=== PATIENT | female | born 1940 | race Caucasian/White ===

== ENCOUNTER 2017-04-22 05:16 | Observation (INO) ==
[2017-04-22] MEDS ORDERED: ASPIRIN 325 MG TABLET PO STA (06:31)
[2017-04-22 07:00] LABS: Basophils # 0.1 10*3/uL (0.0-0.2); Eosinophils # 0.2 10*3/uL (0.0-0.87); Eosinophils % 3.1 % (0.00-10.9); Hematocrit 40.3 VOL% (35.7-47.0); Hemoglobin 13.9 GM/DL (12.0-16.0); Immature Granulocytes % 0.2 %; Immature Granulocytes Absolute 0.01 #; Lymphocytes # 2.1 10*3/uL (1.4-4.0); Lymphocytes % 33.7 % (21.3-54.2); Mean Corpuscular HGB Conc 34.5 GM/DL (32-36); Mean Corpuscular Hemoglobin 32 PG (27-34); Mean Corpuscular Volume 93.9 FL (87-102); Mean Platelet Volume 9.2 FL (9.6-12.0); Monocytes # 0.7 10*3/uL (0.11-0.8); Monocytes % 10.8 % (1.7-12.7); Neutrophils # 3.1 10*3/uL (1.4-7.4); Neutrophils % 51.2 % (38.7-73.9); Platelet Count 258 T/CUMM (130-400); Red Blood Count 4.29 MC/CUMM (3.8-5.5); Red Cell Distribution Width 12.1 % (9.3-17.3); White Blood Count 6.1 T/CUMM (4-12)
[2017-04-22] MEDS ORDERED: ASPIRIN 325 MG TABLET ONE (07:02)
[2017-04-22 07:27] LABS: Calcium 9.8 MG/DL (8.5-10.1); Osmolality,Calculated 278.4 MOS/KG (273-304); Potassium 3.5 MMOL/L (3.5-5.1)
[2017-04-22] MEDS ORDERED: ENOXAPARIN 80 MG/0.8 ML SYRINGE SUBCUT STA (07:27)
[2017-04-22] MEDS: NITROGLYCERIN SL 0.4 MG TABLET SL PRN ×2 (07:30→07:36)
[2017-04-22] MEDS ORDERED: ENOXAPARIN 80 MG/0.8 ML SYRINGE SUBCUT ONE (07:32)
[2017-04-22] MEDS ORDERED: MAGNESIUM SULF RIDER 2 GM in PREMIX 1 EACH IV PRN (07:49)
[2017-04-22] MEDS ORDERED: ONDANSETRON 4 MG/2 ML VIAL IV PRN (07:49)
[2017-04-22] MEDS ORDERED: MAGNESIUM SULF RIDER 4 GM in PREMIX 1 EACH IV PRN (07:49)
[2017-04-22] MEDS: SODIUM CHLORIDE 0.45% 1,000 ML IV SCH ×2 (12:51→16:54)
[2017-04-22] MEDS ORDERED: ENOXAPARIN 60 MG/0.6 ML SYRINGE SUBCUT SCH (15:30)
[2017-04-22] MEDS ORDERED: hydrALAZINE 20 MG/1 ML VIAL IV PRN (16:52)
[2017-04-23 06:05] LABS: Basophils # 0.1 10*3/uL (0.0-0.2); Basophils % 0.9 % (0.0-0.8); Eosinophils # 0.2 10*3/uL (0.0-0.87); Eosinophils % 2.6 % (0.00-10.9); Hematocrit 38.2 VOL% (35.7-47.0); Immature Granulocytes % 0.2 %; Immature Granulocytes Absolute 0.01 #; Lymphocytes # 2.6 10*3/uL (1.4-4.0); Mean Corpuscular Hemoglobin 32 PG (27-34); Mean Corpuscular Volume 93.6 FL (87-102); Mean Platelet Volume 9.5 FL (9.6-12.0); Monocytes # 0.7 10*3/uL (0.11-0.8); Monocytes % 11.3 % (1.7-12.7); Neutrophils # 2.9 10*3/uL (1.4-7.4); Platelet Count 271 T/CUMM (130-400); Red Blood Count 4.08 MC/CUMM (3.8-5.5); Red Cell Distribution Width 11.9 % (9.3-17.3); White Blood Count 6.5 T/CUMM (4-12)
[2017-04-23 07:11] LABS: Calcium 9.4 MG/DL (8.5-10.1); Free T4 (Free Thyroxine) 0.98 NG/DL (0.76-1.46); Magnesium 2.1 MG/DL (1.8-2.4); Osmolality,Calculated 276.5 MOS/KG (273-304); Potassium 3.9 MMOL/L (3.5-5.1); Thyroid Stimulating Hormone 2.13 uIU/ml (0.358-3.74)
[2017-04-23 07:14] LABS: Risk Ratio 6.77; VLDL CHOLESTEROL 92.4 MG/DL
[2017-04-23] MEDS ORDERED: BISOPROLOL/HCTZ 5-6.25 MG TABLET PO SCH ×2 (09:00→21:00)
[2017-04-23] MEDS ORDERED: ASPIRIN EC 81 MG TABLET PO SCH (12:30)
[2017-04-23 19:22] VITALS: BP 128/72
[2017-04-23] MEDS ORDERED: ATORVASTATIN 40 MG TABLET PO SCH (21:00)
[2017-04-24] MEDS ORDERED: ATORVASTATIN 10 MG TABLET PO SCH (09:00)
== END 2017-04-23 19:08 | disposition home or self-care (01) ==
LOC: N.ED 05:16 → N.EDINP 05:16 → N.TELEN 10:08
PROVIDERS: ADMIT Family Medicine; ATTEND Family Medicine

== ENCOUNTER 2017-05-21 00:58 | Inpatient (IN) ==
[2017-05-21] MEDS ORDERED: NITROGLYCERIN 2% OINT 1 INCH/GM PACK TOP STA (01:32)
[2017-05-21] MEDS ORDERED: ONDANSETRON 4 MG/2 ML VIAL IV STA (01:32)
[2017-05-21] MEDS ORDERED: MORPHINE 2 MG/1 ML SYRINGE IV STA (01:32)
[2017-05-21] MEDS ORDERED: METOPROLOL TARTRATE 25 MG TABLET PO STA (01:32)
[2017-05-21] MEDS ORDERED: ALUM/MAG/SIMETH/LIDO VISC 1:1 30 ML BOTTLE PO STA (01:32)
[2017-05-21] MEDS ORDERED: ASPIRIN 325 MG TABLET PO STA (01:32)
[2017-05-21] MEDS ORDERED: NITROGLYCERIN 2% OINT 1 INCH/GM PACK TOP ONE (01:48)
[2017-05-21] MEDS ORDERED: METOPROLOL TARTRATE 25 MG TABLET ONE (01:48)
[2017-05-21] MEDS ORDERED: ONDANSETRON 4 MG/2 ML VIAL ONE (01:48)
[2017-05-21] MEDS ORDERED: ASPIRIN 325 MG TABLET ONE (01:49)
[2017-05-21] MEDS ORDERED: MORPHINE 2 MG/1 ML SYRINGE ONE (01:51)
[2017-05-21 01:55] LABS: Basophils # 0.1 10*3/uL (0.0-0.2); Basophils % 0.7 % (0.0-0.8); Eosinophils # 0.3 10*3/uL (0.0-0.87); Eosinophils % 3.2 % (0.00-10.9); Hematocrit 38.2 VOL% (35.7-47.0); Hemoglobin 12.8 GM/DL (12.0-16.0); Immature Granulocytes % 0.5 %; Immature Granulocytes Absolute 0.04 #; Lymphocytes # 2.6 10*3/uL (1.4-4.0); Lymphocytes % 31.3 % (21.3-54.2); Mean Corpuscular HGB Conc 33.5 GM/DL (32-36); Mean Corpuscular Hemoglobin 32 PG (27-34); Mean Corpuscular Volume 94.8 FL (87-102); Mean Platelet Volume 9.6 FL (9.6-12.0); Monocytes # 0.8 10*3/uL (0.11-0.8); Monocytes % 9.2 % (1.7-12.7); Neutrophils # 4.6 10*3/uL (1.4-7.4); Neutrophils % 55.1 % (38.7-73.9); Platelet Count 269 T/CUMM (130-400); Red Blood Count 4.03 MC/CUMM (3.8-5.5); Red Cell Distribution Width 11.8 % (9.3-17.3); White Blood Count 8.4 T/CUMM (4-12)
[2017-05-21 02:02] LABS: PT Patient Result 10.7 SECS
[2017-05-21 02:24] LABS: Alanine Aminotransferase 26 U/L (13-56); Albumin 4.1 G/DL (3.4-5.0); Alkaline Phosphatase 101 U/L (45-117); Aspartate Amino Transferase 18 U/L (0-37); Bilirubin,Total < 0.39 MG/DL (0.2-1.0); Blood Urea Nitrogen 19 MG/DL (7-18); Calcium 10.1 MG/DL (8.5-10.1); Glucose 99 MG/DL (74-106); Osmolality,Calculated 282.3 MOS/KG (273-304); Potassium 3.6 MMOL/L (3.5-5.1); Sodium 141 MMOL/L (136-145); Total Protein 7.7 G/DL (6.4-8.3)
[2017-05-21] MEDS ORDERED: MORPHINE 2 MG/1 ML SYRINGE IV PRN (04:02)
[2017-05-21] MEDS ORDERED: ONDANSETRON 4 MG/2 ML VIAL IV PRN (04:02)
[2017-05-21] MEDS: DEXTROSE 5% NACL 0.9% 1,000 ML IV SCH ×3 (06:30→23:25)
[2017-05-21] MEDS ORDERED: MAGNESIUM SULF RIDER 2 GM in PREMIX 1 EACH IV PRN (08:41)
[2017-05-21] MEDS ORDERED: POTASSIUM CHLORIDE RIDER 10 MEQ in PREMIX 1 EACH IV PRN (08:41)
[2017-05-21] MEDS ORDERED: HEPARIN/NACL 0.9% 2 UNITS/ML 2,000 ML IV ONE (08:46)
[2017-05-21] MEDS ORDERED: NITROGLYCERIN DRIP 50 MG/250 ML BOTTLE IV ONE (08:46)
[2017-05-21] MEDS ORDERED: LIDOCAINE 1% 20 ML VIAL ONE (08:46)
[2017-05-21] MEDS ORDERED: VERAPAMIL 5 MG/2 ML VIAL ONE (08:46)
[2017-05-21] MEDS ORDERED: SODIUM CHLORIDE 0.45% 1,000 ML IV SCH (09:00)
[2017-05-21] MEDS ORDERED: DIAZEPAM 5 MG TABLET PO ONE (09:00)
[2017-05-21] MEDS ORDERED: diphenhydrAMINE CAP 25 MG CAPSULE PO ONE (09:00)
[2017-05-21] MEDS ORDERED: MIDAZOLAM 2 MG/2 ML VIAL ONE (09:06)
[2017-05-21] MEDS ORDERED: fentaNYL 100 MCG/2 ML VIAL ONE (09:06)
[2017-05-21] MEDS ORDERED: ENOXAPARIN 60 MG/0.6 ML SYRINGE ONE (09:20)
[2017-05-21] MEDS ORDERED: ADENOSINE 90 MG/30 ML VIAL IV ONE (09:48)
[2017-05-21] MEDS: ATORVASTATIN 10 MG TABLET PO SCH (10:01)
[2017-05-21] MEDS ORDERED: BISOPROLOL/HCTZ 5-6.25 MG TABLET PO SCH (21:00)
[2017-05-22 04:27] LABS: Basophils % 0.5 % (0.0-0.8); Eosinophils # 0.3 10*3/uL (0.0-0.87); Eosinophils % 3.8 % (0.00-10.9); Hematocrit 35.8 VOL% (35.7-47.0); Hemoglobin 11.8 GM/DL (12.0-16.0); Immature Granulocytes % 0.2 %; Immature Granulocytes Absolute 0.02 #; Lymphocytes # 2.3 10*3/uL (1.4-4.0); Lymphocytes % 27.9 % (21.3-54.2); Mean Corpuscular Hemoglobin 32 PG (27-34); Mean Platelet Volume 9.9 FL (9.6-12.0); Monocytes # 0.7 10*3/uL (0.11-0.8); Neutrophils # 4.7 10*3/uL (1.4-7.4); Neutrophils % 58.6 % (38.7-73.9); Platelet Count 243 T/CUMM (130-400); Red Blood Count 3.73 MC/CUMM (3.8-5.5); Red Cell Distribution Width 11.7 % (9.3-17.3); White Blood Count 8.1 T/CUMM (4-12)
[2017-05-22 04:49] LABS: Calcium 9.1 MG/DL (8.5-10.1); Magnesium 1.8 MG/DL (1.8-2.4); Osmolality,Calculated 281.1 MOS/KG (273-304); Potassium 3.7 MMOL/L (3.5-5.1)
[2017-05-22] MEDS: DEXTROSE 5% NACL 0.9% 1,000 ML IV SCH ×2 (06:59→14:06)
[2017-05-22] MEDS: ATORVASTATIN 10 MG TABLET PO SCH (08:48)
[2017-05-22] MEDS: DICLOFENAC 1% GEL 100 GM TUBE TOP SCH ×2 (08:48→14:06)
[2017-05-22] MEDS ORDERED: MELOXICAM 7.5 MG TABLET PO SCH (09:00)
[2017-05-22 11:31] VITALS: BP 153/68
== END 2017-05-22 14:06 | disposition home or self-care (01) | DRG 287 ==
LOC: N.ED 00:58 → N.EDINP 04:02 → N.ICU 05:27 → N.TELES 22:59
PROVIDERS: ADMIT Family Medicine; ATTEND Family Medicine
PROC: CLCCHCL (ICD-10-PCS; 2017-05-21 09:45)

== ENCOUNTER 2018-09-20 11:46 | Inpatient (IN) ==
[2018-09-20] MEDS ORDERED: ACETAMINOPHEN 325 MG TABLET PO PRN (12:30)
[2018-09-20] MEDS ORDERED: ONDANSETRON 4 MG/2 ML VIAL IV PRN (12:30)
[2018-09-20 12:58] LABS: Basophils % 0.4 % (0.0-0.8); Eosinophils # 0.2 10*3/uL (0.0-0.87); Eosinophils % 1.5 % (0.00-10.9); Hematocrit 40.5 VOL% (35.7-47.0); Immature Granulocytes % 0.5 %; Immature Granulocytes Absolute 0.05 #; Lymphocytes # 1.4 10*3/uL (1.4-4.0); Lymphocytes % 13.7 % (21.3-54.2); Mean Corpuscular HGB Conc 32.1 GM/DL (32-36); Mean Corpuscular Volume 95.7 FL (87-102); Mean Platelet Volume 9.1 FL (9.6-12.0); Monocytes % 8.9 % (1.7-12.7); Platelet Count 236 T/CUMM (130-400); Red Blood Count 4.23 MC/CUMM (3.8-5.5); Red Cell Distribution Width 12.4 % (9.3-17.3); White Blood Count 10.4 T/CUMM (4-12)
[2018-09-20 13:17] LABS: Albumin 4.1 G/DL (3.4-5.0); Bilirubin,Total 0.5 MG/DL (0.2-1.0); Calcium 10.1 MG/DL (8.5-10.1); Osmolality,Calculated 277.5 MOS/KG (273-304); Total Protein 7.9 G/DL (6.4-8.3)
[2018-09-20] MEDS ORDERED: ALBUTEROL 1.25 MG/3 ML NEB RESP TX PRN (15:49)
[2018-09-20] MEDS ORDERED: ALBUTEROL/IPRATROPIUM 3 ML NEB RESP TX PRN (15:49)
[2018-09-20] MEDS ORDERED: FLUTICASONE 50 MCG NASAL SPRAY 16 GM BOTTLE BOTH NARES PRN (15:54)
[2018-09-20] MEDS: DOCUSATE SODIUM 100 MG CAPSULE PO SCH (21:05)
[2018-09-20] MEDS: ENOXAPARIN 30 MG/0.3 ML SYRINGE SUBCUT SCH (21:05)
[2018-09-21 02:50] LABS: Apearance,Urine CLEAR (Clear); Bacteria,Urine Few /HPF (Few); Bilirubin,Urine Negative (Negative); Blood, Urine Negative (Negative); Glucose,Urine (UA) Negative (Negative); Ketones,Urine 5 mg/dL (Negative); Mucus,Urine Occasional /LPF (Occasional); Nitrite,Urine Negative (Negative); Protein,Urine Negative; RBC,Urine 1 /HPF (0-4); Squamous Epithelial Cell,Urine Moderate /HPF (0-10); Urine Color Yellow (Yellow); Urine Urobilinogen < 2.0 EU/DL (0.2-1.0); WBC,Urine 35 /HPF (0-6)
[2018-09-21 04:37] LABS: Basophils % 0.5 % (0.0-0.8); Eosinophils # 0.2 10*3/uL (0.0-0.87); Hematocrit 38.4 VOL% (35.7-47.0); Hemoglobin 12.5 GM/DL (12.0-16.0); Immature Granulocytes % 0.7 %; Immature Granulocytes Absolute 0.05 #; Lymphocytes # 2.1 10*3/uL (1.4-4.0); Lymphocytes % 28.1 % (21.3-54.2); Mean Corpuscular HGB Conc 32.6 GM/DL (32-36); Mean Corpuscular Volume 94.8 FL (87-102); Mean Platelet Volume 9.7 FL (9.6-12.0); Monocytes % 11.2 % (1.7-12.7); Neutrophils % 56.5 % (38.7-73.9); Platelet Count 230 T/CUMM (130-400); Red Blood Count 4.05 MC/CUMM (3.8-5.5); Red Cell Distribution Width 12.3 % (9.3-17.3); White Blood Count 7.6 T/CUMM (4-12)
[2018-09-21 04:46] LABS: Calcium 9.3 MG/DL (8.5-10.1); Osmolality,Calculated 275.7 MOS/KG (273-304)
[2018-09-21] MEDS: DOCUSATE SODIUM 100 MG CAPSULE PO SCH ×2 (08:34→20:52)
[2018-09-21] MEDS: LORATADINE 10 MG TABLET PO SCH (17:16)
[2018-09-21] MEDS: cefTRIAXone 500 MG in SYRINGE 1 EACH IV SCH (17:17)
[2018-09-21] MEDS: methylPREDNISolone SOD SUC 40 MG/1 ML VIAL IV SCH (17:20)
[2018-09-21] MEDS: ALBUTEROL/IPRATROPIUM 3 ML NEB RESP TX SCH (19:05)
[2018-09-21] MEDS: ENOXAPARIN 30 MG/0.3 ML SYRINGE SUBCUT SCH (20:52)
[2018-09-22] MEDS: ALBUTEROL/IPRATROPIUM 3 ML NEB RESP TX SCH ×4 (01:40→19:30)
[2018-09-22] MEDS: methylPREDNISolone SOD SUC 40 MG/1 ML VIAL IV SCH (05:11)
[2018-09-22 05:28] LABS: Calcium 9.5 MG/DL (8.5-10.1); Osmolality,Calculated 283.3 MOS/KG (273-304)
[2018-09-22 05:42] LABS: Basophils % 0.2 % (0.0-0.8); Hematocrit 38.3 VOL% (35.7-47.0); Hemoglobin 12.5 GM/DL (12.0-16.0); Immature Granulocytes % 1.1 %; Immature Granulocytes Absolute 0.07 #; Lymphocytes # 0.6 10*3/uL (1.4-4.0); Lymphocytes % 9.2 % (21.3-54.2); Mean Corpuscular HGB Conc 32.6 GM/DL (32-36); Mean Corpuscular Volume 95.8 FL (87-102); Mean Platelet Volume 9.8 FL (9.6-12.0); Monocytes % 3.9 % (1.7-12.7); Neutrophils % 85.6 % (38.7-73.9); Platelet Count 260 T/CUMM (130-400); Red Cell Distribution Width 12.2 % (9.3-17.3); White Blood Count 6.1 T/CUMM (4-12)
[2018-09-22] MEDS ORDERED: POTASSIUM CHLORIDE 20 MEQ TABLET PO ONE ×2 (06:00→14:53)
[2018-09-22] MEDS: DOCUSATE SODIUM 100 MG CAPSULE PO SCH ×2 (08:53→21:01)
[2018-09-22] MEDS: POTASSIUM CHLORIDE 20 MEQ TABLET PO PRN (08:53)
[2018-09-22] MEDS: LORATADINE 10 MG TABLET PO SCH (08:53)
[2018-09-22] MEDS: ZINC OXIDE PASTE 113 GM TUBE TOP SCH ×2 (08:55→21:02)
[2018-09-22] MEDS ORDERED: LISINOPRIL 5 MG TABLET PO SCH (09:00)
[2018-09-22] MEDS ORDERED: FUROSEMIDE 40 MG/4 ML VIAL IV ONE (14:53)
[2018-09-22] MEDS: cefTRIAXone 500 MG in SYRINGE 1 EACH IV SCH (18:10)
[2018-09-22] MEDS: BUDESONIDE 0.25 MG/2 ML NEB RESP TX SCH (19:30)
[2018-09-22] MEDS: ENOXAPARIN 30 MG/0.3 ML SYRINGE SUBCUT SCH (21:00)
[2018-09-22] MEDS: TEMAZEPAM 7.5 MG CAPSULE PO SCH (21:00)
[2018-09-23] MEDS: ALBUTEROL/IPRATROPIUM 3 ML NEB RESP TX SCH ×6 (00:40→23:33)
[2018-09-23 05:08] LABS: Calcium 9.7 MG/DL (8.5-10.1); Osmolality,Calculated 283.1 MOS/KG (273-304)
[2018-09-23 05:11] LABS: Basophils % 0.2 % (0.0-0.8); Eosinophils # 0.1 10*3/uL (0.0-0.87); Eosinophils % 0.8 % (0.00-10.9); Hemoglobin 11.4 GM/DL (12.0-16.0); Immature Granulocytes % 0.8 %; Immature Granulocytes Absolute 0.09 #; Lymphocytes # 2.5 10*3/uL (1.4-4.0); Lymphocytes % 23.3 % (21.3-54.2); Mean Corpuscular HGB Conc 32.6 GM/DL (32-36); Mean Corpuscular Volume 96.7 FL (87-102); Mean Platelet Volume 9.5 FL (9.6-12.0); Monocytes % 7.2 % (1.7-12.7); Neutrophils % 67.7 % (38.7-73.9); Platelet Count 262 T/CUMM (130-400); Red Blood Count 3.62 MC/CUMM (3.8-5.5); Red Cell Distribution Width 12.8 % (9.3-17.3); White Blood Count 10.7 T/CUMM (4-12)
[2018-09-23] MEDS: POTASSIUM CHLORIDE 20 MEQ TABLET PO PRN (06:13)
[2018-09-23] MEDS: BUDESONIDE 0.25 MG/2 ML NEB RESP TX SCH ×2 (07:12→19:20)
[2018-09-23] MEDS: MULTIVITAMIN (OCUVITE) TABLET PO SCH (08:39)
[2018-09-23] MEDS: DOCUSATE SODIUM 100 MG CAPSULE PO SCH ×2 (08:39→21:33)
[2018-09-23] MEDS: LORATADINE 10 MG TABLET PO SCH (08:39)
[2018-09-23] MEDS: LISINOPRIL 10 MG TABLET PO SCH (08:39)
[2018-09-23] MEDS ORDERED: methylPREDNISolone SOD SUC 40 MG/1 ML VIAL IV SCH (09:00)
[2018-09-23] MEDS ORDERED: KRILL OIL PO SCH (09:00)
[2018-09-23] MEDS: ZINC OXIDE PASTE 113 GM TUBE TOP SCH ×2 (14:32→21:36)
[2018-09-23] MEDS: methylPREDNISolone SOD SUC 40 MG/1 ML VIAL IV SCH (16:51)
[2018-09-23] MEDS: cefTRIAXone 500 MG in SYRINGE 1 EACH IV SCH (17:00)
[2018-09-23] MEDS: TEMAZEPAM 7.5 MG CAPSULE PO SCH (21:33)
[2018-09-23] MEDS: ENOXAPARIN 30 MG/0.3 ML SYRINGE SUBCUT SCH (21:33)
[2018-09-24] MEDS: methylPREDNISolone SOD SUC 40 MG/1 ML VIAL IV SCH ×3 (00:43→17:54)
[2018-09-24] MEDS: ALBUTEROL/IPRATROPIUM 3 ML NEB RESP TX SCH ×6 (03:40→22:54)
[2018-09-24 05:58] LABS: Basophils % 0.2 % (0.0-0.8); Hematocrit 41.9 VOL% (35.7-47.0); Hemoglobin 13.6 GM/DL (12.0-16.0); Immature Granulocytes % 1.5 %; Immature Granulocytes Absolute 0.15 #; Lymphocytes # 0.6 10*3/uL (1.4-4.0); Lymphocytes % 6.1 % (21.3-54.2); Mean Corpuscular HGB Conc 32.5 GM/DL (32-36); Mean Platelet Volume 9.4 FL (9.6-12.0); Monocytes % 1.2 % (1.7-12.7); Platelet Count 321 T/CUMM (130-400); Red Blood Count 4.41 MC/CUMM (3.8-5.5); Red Cell Distribution Width 12.8 % (9.3-17.3); White Blood Count 9.7 T/CUMM (4-12)
[2018-09-24 06:19] LABS: Calcium 10.6 MG/DL (8.5-10.1); Osmolality,Calculated 280.5 MOS/KG (273-304)
[2018-09-24 06:23] LABS: Anisocytosis 1+; Lymphocytes 8 % (20-55); Platelet Estimate Adequate; Segmented Neutrophils 91 % (50-85); Total Cells Counted 100
[2018-09-24] MEDS: BUDESONIDE 0.25 MG/2 ML NEB RESP TX SCH ×2 (07:50→18:43)
[2018-09-24] MEDS: LORATADINE 10 MG TABLET PO SCH (08:26)
[2018-09-24] MEDS: MULTIVITAMIN (OCUVITE) TABLET PO SCH (08:27)
[2018-09-24] MEDS: DOCUSATE SODIUM 100 MG CAPSULE PO SCH ×2 (08:27→21:07)
[2018-09-24] MEDS: ZINC OXIDE PASTE 113 GM TUBE TOP SCH ×2 (08:27→21:08)
[2018-09-24] MEDS: LISINOPRIL 10 MG TABLET PO SCH ×2 (10:20→21:09)
[2018-09-24] MEDS ORDERED: CLORAZEPATE 3.75 MG TABLET PO PRN (16:05)
[2018-09-24] MEDS: cefTRIAXone 500 MG in SYRINGE 1 EACH IV SCH (17:55)
[2018-09-24] MEDS ORDERED: cefTRIAXone 1,000 MG VIAL IM SCH (19:00)
[2018-09-24] MEDS: BISOPROLOL/HCTZ 5-6.25 MG TABLET PO SCH ×4 (20:03→21:19)
[2018-09-24] MEDS ORDERED: LISINOPRIL 10 MG TABLET PO SCH (21:00)
[2018-09-24] MEDS: ENOXAPARIN 30 MG/0.3 ML SYRINGE SUBCUT SCH (21:08)
[2018-09-24] MEDS: TEMAZEPAM 7.5 MG CAPSULE PO SCH (21:09)
[2018-09-25] MEDS: ALBUTEROL/IPRATROPIUM 3 ML NEB RESP TX SCH ×5 (02:15→19:57)
[2018-09-25] MEDS: methylPREDNISolone SOD SUC 40 MG/1 ML VIAL IV SCH ×3 (02:41→15:39)
[2018-09-25 05:12] LABS: Basophils % 0.3 % (0.0-0.8); Hematocrit 38.4 VOL% (35.7-47.0); Hemoglobin 12.4 GM/DL (12.0-16.0); Immature Granulocytes Absolute 0.41 #; Lymphocytes # 1.4 10*3/uL (1.4-4.0); Lymphocytes % 10.1 % (21.3-54.2); Mean Corpuscular HGB Conc 32.3 GM/DL (32-36); Mean Corpuscular Volume 96.5 FL (87-102); Mean Platelet Volume 9.4 FL (9.6-12.0); Monocytes % 7.7 % (1.7-12.7); Neutrophils % 78.9 % (38.7-73.9); Platelet Count 311 T/CUMM (130-400); Red Blood Count 3.98 MC/CUMM (3.8-5.5); Red Cell Distribution Width 13.2 % (9.3-17.3); White Blood Count 13.9 T/CUMM (4-12)
[2018-09-25 05:44] LABS: Calcium 10.4 MG/DL (8.5-10.1); Osmolality,Calculated 278.7 MOS/KG (273-304)
[2018-09-25] MEDS: BUDESONIDE 0.25 MG/2 ML NEB RESP TX SCH ×2 (07:55→19:57)
[2018-09-25] MEDS: DOCUSATE SODIUM 100 MG CAPSULE PO SCH ×2 (08:40→20:19)
[2018-09-25] MEDS: LORATADINE 10 MG TABLET PO SCH (08:40)
[2018-09-25] MEDS: ZINC OXIDE PASTE 113 GM TUBE TOP SCH ×2 (08:40→20:21)
[2018-09-25] MEDS: MULTIVITAMIN (OCUVITE) TABLET PO SCH (08:40)
[2018-09-25 19:44] LABS: Apearance,Urine CLEAR (Clear); Bacteria,Urine Occasional /HPF (Few); Bilirubin,Urine Negative (Negative); Blood, Urine Negative (Negative); Glucose,Urine (UA) Negative (Negative); Hyaline Casts,Urine 1 /LPF (0-3); Ketones,Urine Negative (Negative); Nitrite,Urine Negative (Negative); Protein,Urine Negative; RBC,Urine <1 /HPF (0-4); Squamous Epithelial Cell,Urine Occasional /HPF (0-10); Urine Color Yellow (Yellow); Urine Specific Gravity 1.012 (1.001-1.035); Urine Urobilinogen < 2.0 EU/DL (0.2-1.0); WBC,Urine <1 /HPF (0-6)
[2018-09-25] MEDS: ENOXAPARIN 30 MG/0.3 ML SYRINGE SUBCUT SCH (20:18)
[2018-09-25] MEDS: cefTRIAXone 1,000 MG in SYRINGE 1 EACH IV SCH (20:18)
[2018-09-25] MEDS: TEMAZEPAM 7.5 MG CAPSULE PO SCH (20:19)
[2018-09-25] MEDS: LISINOPRIL 10 MG TABLET PO SCH (20:20)
[2018-09-25] MEDS: BISOPROLOL PO SCH (20:21)
[2018-09-25] MEDS: HCTZ PO SCH (20:21)
[2018-09-26] MEDS: methylPREDNISolone SOD SUC 40 MG/1 ML VIAL IV SCH ×3 (00:04→15:17)
[2018-09-26] MEDS: ALBUTEROL/IPRATROPIUM 3 ML NEB RESP TX SCH ×7 (00:15→23:54)
[2018-09-26 04:36] LABS: Basophils # 0.1 10*3/uL (0.0-0.2); Basophils % 0.5 % (0.0-0.8); Hematocrit 40.5 VOL% (35.7-47.0); Hemoglobin 12.8 GM/DL (12.0-16.0); Immature Granulocytes % 6.3 %; Lymphocytes # 1.2 10*3/uL (1.4-4.0); Lymphocytes % 8.6 % (21.3-54.2); Mean Corpuscular HGB Conc 31.6 GM/DL (32-36); Mean Corpuscular Volume 97.4 FL (87-102); Mean Platelet Volume 9.3 FL (9.6-12.0); Monocytes % 4.8 % (1.7-12.7); Neutrophils % 79.8 % (38.7-73.9); Platelet Count 344 T/CUMM (130-400); Red Blood Count 4.16 MC/CUMM (3.8-5.5); Red Cell Distribution Width 13.2 % (9.3-17.3); White Blood Count 14.4 T/CUMM (4-12)
[2018-09-26 05:11] LABS: Anisocytosis 1+; Eosinophils 1 % (0-10); Lymphocytes 10 % (20-55); Platelet Estimate Adequate; Segmented Neutrophils 85 % (50-85); Total Cells Counted 100
[2018-09-26 05:12] LABS: Calcium 10.2 MG/DL (8.5-10.1); Osmolality,Calculated 280.7 MOS/KG (273-304)
[2018-09-26 06:05] LABS: Risk Ratio 3.51; VLDL CHOLESTEROL 48.8 MG/DL
[2018-09-26] MEDS: GLYCOPYRROLATE 0.4 MG/2 ML VIAL IM ONE ×2 (06:29→06:32)
[2018-09-26] MEDS ORDERED: MEPERIDINE 50 MG/1 ML VIAL IM ONE (07:00)
[2018-09-26] MEDS ORDERED: PROMETHAZINE 25 MG/1 ML VIAL IM ONE (07:00)
[2018-09-26] MEDS ORDERED: MIDAZOLAM 2 MG/2 ML VIAL ONE (07:06)
[2018-09-26] MEDS: BUDESONIDE 0.25 MG/2 ML NEB RESP TX SCH ×2 (07:08→19:59)
[2018-09-26] MEDS ORDERED: LIDOCAINE 2% 20 ML VIAL RESP TX ONE (07:30)
[2018-09-26] MEDS ORDERED: MIDAZOLAM 2 MG/2 ML VIAL IV ONE (07:30)
[2018-09-26] MEDS ORDERED: LIDOCAINE 1% 20 ML VIAL MISC INJ ONE (07:30)
[2018-09-26] MEDS ORDERED: LIDOCAINE 2% VISCOUS 100 ML BOTTLE SWISH/SPIT ONE (07:30)
[2018-09-26] MEDS: DOCUSATE SODIUM 100 MG CAPSULE PO SCH ×2 (10:16→22:00)
[2018-09-26] MEDS: MULTIVITAMIN (OCUVITE) TABLET PO SCH (10:17)
[2018-09-26] MEDS: LORATADINE 10 MG TABLET PO SCH (10:17)
[2018-09-26] MEDS: ZINC OXIDE PASTE 113 GM TUBE TOP SCH ×2 (10:18→22:05)
[2018-09-26] MEDS: cefTRIAXone 1,000 MG in SYRINGE 1 EACH IV SCH (21:55)
[2018-09-26] MEDS: BISOPROLOL PO SCH (22:00)
[2018-09-26] MEDS: TEMAZEPAM 7.5 MG CAPSULE PO SCH (22:00)
[2018-09-26] MEDS: ENOXAPARIN 30 MG/0.3 ML SYRINGE SUBCUT SCH (22:00)
[2018-09-26] MEDS: HCTZ PO SCH (22:00)
[2018-09-26] MEDS: LISINOPRIL 10 MG TABLET PO SCH (22:04)
[2018-09-27] MEDS: methylPREDNISolone SOD SUC 40 MG/1 ML VIAL IV SCH ×2 (00:33→08:57)
[2018-09-27] MEDS: ALBUTEROL/IPRATROPIUM 3 ML NEB RESP TX SCH ×3 (03:16→10:59)
[2018-09-27 04:59] LABS: Basophils # 0.1 10*3/uL (0.0-0.2); Basophils % 0.5 % (0.0-0.8); Hematocrit 37.4 VOL% (35.7-47.0); Immature Granulocytes % 8.4 %; Immature Granulocytes Absolute 1.11 #; Lymphocytes # 1.2 10*3/uL (1.4-4.0); Lymphocytes % 8.8 % (21.3-54.2); Mean Corpuscular HGB Conc 32.1 GM/DL (32-36); Mean Corpuscular Volume 96.4 FL (87-102); Mean Platelet Volume 9.1 FL (9.6-12.0); Monocytes % 5.1 % (1.7-12.7); Neutrophils % 77.2 % (38.7-73.9); Platelet Count 310 T/CUMM (130-400); Red Blood Count 3.88 MC/CUMM (3.8-5.5); White Blood Count 13.3 T/CUMM (4-12)
[2018-09-27 05:22] LABS: Calcium 9.6 MG/DL (8.5-10.1); Osmolality,Calculated 282.5 MOS/KG (273-304)
[2018-09-27 05:25] LABS: Band Neutrophils 1 % (0-10); Hypochromasia 1+; Lymphocytes 11 % (20-55); Platelet Estimate Adequate; Segmented Neutrophils 84 % (50-85); Total Cells Counted 100
[2018-09-27] MEDS: BUDESONIDE 0.25 MG/2 ML NEB RESP TX SCH (07:34)
[2018-09-27] MEDS: MULTIVITAMIN (OCUVITE) TABLET PO SCH (08:57)
[2018-09-27] MEDS: DOCUSATE SODIUM 100 MG CAPSULE PO SCH (08:58)
[2018-09-27] MEDS: LORATADINE 10 MG TABLET PO SCH (08:58)
[2018-09-27] MEDS: ZINC OXIDE PASTE 113 GM TUBE TOP SCH (08:58)
[2018-09-27] MEDS ORDERED: predniSONE 20 MG TABLET PO SCH (09:00)
[2018-09-27] MEDS ORDERED: CEFUROXIME 500 MG TABLET PO SCH (09:00)
[2018-09-27 11:44] VITALS: BP 155/70
[2018-09-27] MEDS ORDERED: BUDESONIDE/FORMOTEROL 160-4.5 INHALER 6 GM INH SCH (21:00)
== END 2018-09-27 12:11 | disposition home or self-care (01) | DRG 167 ==
LOC: N.4E → SUATTDRO 12:11 → OBSVTOIN 12:11
PROVIDERS: ADMIT Family Medicine; ATTEND Family Medicine